=== PATIENT | male | born 1990 | race Caucasian/White ===

== ENCOUNTER 2018-04-24 06:00 | Emergency (ER) | END 2018-04-24 07:49 | disposition left against medical advice (07) ==

== ENCOUNTER 2019-01-21 08:57 | Emergency (ER) | payer OTHER ==
[~2019-01-21] VITALS: Ht 188 cm; Wt 136.4 kg
[~2019-01-21 08:57] MED LIST: ACET500C5 PO; CARV6.2579 PO; DOLU50TA PO; EMTR1TAB11 PO; IBUP-1542 PO; MELO7.5T38 PO; ONDA4TAB8 PO; TRAM50TA2 PO; TRUV PO
[2019-01-21 08:59] VITALS: BP 148/65; PULSE 91; RESP 18; Ht 188 cm; Wt 136.4 kg
--- NOTE | 2019-01-21 10:46 | ERD ---
ER Documentation Chief Complaint Chief Complaint Pt c/o piece of glass on his throat for 6weeks. HPI This is a 28-year-old male with a history of methamphetamine dependence presents to ED with complaints of foreign body in throat for the past 1-1/2 months. Patient states that he was using methamphetamine 1/2 months ago and he dropped his pipe causing it to crack. Patient states that he then proceeded to snort methamphetamine and believes that he snorted a piece of glass. Patient states that he has been seen by his primary care physician for this complaint and he h as also been seen by ENT but he has not had any imaging done. Patient admits to sore throat that is been off and on for the past month and half. Tolerating p.o. liquids and solids. Denies painful swallowing. Denies fever, chills, neck pain, headache, blurry vision changes in vision, and all other symptoms . last used meth 1-1/2 months ago. ROS All systems reviewed and are negative except as per history of present illness. Medications Home Meds Active Scripts Dolutegravir Sodium (Tivicay) 50 Mg Tablet, 50 MG PO DAILY, #15 TAB Prov:JACQUELYN LÓPEZ MD 09/07/16 Emtricitabine-Tenofovir* (Truvada*) 200-300 Mg Tablet, 1 TAB PO DAILY for 15 Days, #15 TAB Prov:JACQUELYN LÓPEZ MD 09/07/16 PMhx/Soc Hx Cardiac Disorders: Yes (HTN) Hx Miscellaneous Medical Probl: Yes (DM, SLEEP APNEA) FmHx Family History: No diabetes Physical Exam Vitals Vital Signs Date Temp Pulse Resp B/P (MAP) Pulse Ox O2 O2 Flow FiO2 Time Delivery Rate 01/21/19 98.4 91 18 148/65 97 08:59 (92) Physical Exam Physical Exam Vitals signs: Reviewed by me. General: Well developed, well nourished, in mild distress. Patient is awake and alert. Head: Normocephalic, atraumatic. Eyes: Normal conjunctiva, Pupils PERRLA, EOM intact grossly ENT: Pharynx is clear, Moist mucous membranes, external ears, nose and mouth normal, no blood seen in posterior oropharynx, no tonsillar adenopathy, exudate or erythema, no kissing tonsils, no uvula deviation, Neck: Supple, no masses, lymphadenopathy or JVD Respiratory: Clear to auscultation bilaterally with no wheezing, rhonchi, rales, no distress Cardiovascular: RRR, no murmurs, rubs, or gallops Neurologic: Alert and oriented, moving all extremities, normal speech, no focal weakness, no cerebellar signs. Normal mentation Skin: warm and dry, No rash Psych: Normal mood Procedures/MDM EKG, MONITORS, & DIAGNOSTIC IMAGING: [place] [address] Radiology Main Line: [phone] DIAGNOSTIC IMAGING REPORT Patient: LALIT GARCES : 11/08/1953 Age: 65 Sex: M MR #: [id number] DOS: 01/21/19 0825 Ordering MD: RIKI OSBORN PA-C Location: [facility] Room/Bed: PROCEDURE: Thoracic spine series CLINICAL INDICATION: Pain TECHNIQUE: AP and lateral views of thoracic spine were obtained COMPARISON: None FINDINGS: No evidence of acute fractures or subluxations. Mild degenerative enthesopathy involving the thoracic spine. The bones are osteopenic without focal bony blastic or lytic lesions. Posterior elements appear intact. No paraspinous masses. IMPRESSION: Degenerative changes thoracic spine as above without acute fractures or subluxations. RPTAT:AAJJ Physician Althea Date Time Electronically viewed and signed by Physician Althea on 01/21/2019 09:13 BM/ CC: RIKI OSBORN PA-C [phone] ER COURSE: The patient was stable throughout ED course. I kept the patient and/or family informed of laboratory and diagnostic imaging results throughout the emergency room course. The patient was promptly evaluated and a treatment plan was devised based on H&P and other data. This plan was discussed with the patient who agreed and had no further questions or concerns prior to discharge. MEDICAL DECISION MAKIN-year-old male with a history of methamphetamine dependence presents ED with complaints of foreign body in throat times 1/2 months. Patient is requesting imaging the emergency department today. CT neck soft tissues unremarkable. There is no evidence of glass foreign body in throat/ neck. This is likely a viral sore throat / globus sensation. At this time there is no esophageal emergency. No evidence of esophageal rupture, retropharyngeal abscess, peritonsillar abscess, liquids, epiglottitis, sepsis among other emergencies. Vitals are stable patient can be managed close outpatient follow-up. Advised patient follow-up this morning care in the next 48 hours. Return to ED with any worsening DISPOSITION PLAN: We discussed follow up with the patient's primary care doctor within 24 to 48 hours. Patient counseled regarding my diagnostic impression and care plan. Prior to discharge all questions answered. Pt agrees with treatment plan and understands strict return precautions. Precautionary instructions provided in cluding instructions to return to the ER if not improving or for any worsening or changing symptoms or concerns. SPECIALIST FOLLOW UP RECOMMENDED: None Patient has been advised to follow up with primary care in 1-2 days. Disclaimer: Inadvertent spelling and grammatical errors are likely due to EHR/dictation software use and do not reflect on the overall quality of patient care. Also, please note that the electronic time recorded on this note does not necessarily reflect the actual time of the patient encounter. Blood Pressure Assessment: Patient's blood pressure was elevated (>120/80) but appears stable without evidence of hypertension emergency or urgency. The patient was counseled about the risks of hypertension and urged to pursue outpatient monitoring and therapy within a week with their primary care physician. Departure Diagnosis: Primary Impression: Sore throat Additional Impression: Globus sensation Condition: Stable Patient Instructions: Self-Care for Sore Throats Referrals: COMMUNITY CLINICS Additional Instructions: Patient advised to return to the ED immediately for new or worsening symptoms. Patient advised to follow up with primary care provider in the next 24-48 hours. Patient verbalized understanding and agrees with treatment plan and course of action. If patient has no primary care they may follow up with one of the community clinics listed on the following page or one of the options listed below [facility] [address] [place] [address] or [facility] [address] [place] [address] or [facility] [address] [place] [address] RIKI OSBORN PA-C Jan 21, 2019 10:46
== END 2019-01-21 11:35 | disposition left against medical advice (07) ==
LOC: FTE 08:57 → MERGE 08:57 → FTE 11:35
DX: J02.9 Acute pharyngitis, unspecified (principal); I10 Essential (primary) hypertension; E11.9 Type 2 diabetes mellitus without complications; F45.8 Other somatoform disorders
CPT/HCPCS: 70490; Z7502

== ENCOUNTER 2019-02-15 08:43 | Emergency (ER) | payer OTHER ==
[~2019-02-15] VITALS: Ht 185.4 cm; Wt 134.4 kg
[~2019-02-15 08:43] MED LIST changes: +IBUP-1561 PO
[2019-02-15 08:50] VITALS: BP 142/75; PULSE 100; RESP 16; Ht 185.4 cm; Wt 134.4 kg
[2019-02-15] MEDS ORDERED: DOLU50TA PO (09:56)
[2019-02-15] MEDS ORDERED: TENO300T8 PO (09:56)
--- NOTE | 2019-02-15 17:57 | ERD ---
ER Documentation Chief Complaint Chief Complaint needs rx for possible std HPI This is a 28-year-old male patient who presents to the emergency room with concerns that he may have contracted HIV last night. States he went out drinking and "brought a homeless drug addict woman home." Reports having only vaginal intercoursex1 without condom use. Patient is requesting use of PEP to prevent HIV. Patient is declining testing for chlamydia, gonorrhea, or other communicable diseases. Is having no other symptoms, no penile discharge, no fevers, no abdominal pain. ROS All systems reviewed and are negative except as per history of present illness. Medications Home Meds Active Scripts Dolutegravir Sodium (Tivicay) 50 Mg Tablet, 50 MG PO ONCE for 1 Day, TAB Prov:JUAN OTERO NP 02/15/19 Tenofovir Disoproxil Fumarate (Tenofovir Disoproxil Fumarate) 300 Mg Tablet, 300 MG PO ONCE for 1 Day, TAB Prov:JUAN OTERO NP 02/15/19 Ibuprofen* (Motrin*) 400 Mg Tab, 400 MG PO Q6, #30 TAB Prov:RIKI OSBORN PA-C 01/21/19 Acetaminophen* (Tylophen*) 500 Mg Capsule, 1 CAP PO Q6H PRN for PAIN AND OR ELEVATED TEMP, #30 CAP Prov:MARIBELL LAWRENCE PA-C 04/24/18 Ondansetron Hcl* (Zofran*) 4 Mg Tablet, 4 MG PO Q6H for NAUSEA AND/OR VOMITING, #30 TAB Prov:MARIBELL LAWRENCE PA-C 04/24/18 Dolutegravir Sodium (Tivicay) 50 Mg Tablet, 50 MG PO DAILY, #7 TAB Prov:HUNTER KENNEDY NP 10/29/16 Emtricitabine-Tenofovir* (Truvada*) 200-300 Mg Tablet, 1 TAB PO DAILY for 7 Days, TAB Prov:HUNTER KENNEDY NP 10/29/16 Dolutegravir Sodium (Tivicay) 50 Mg Tablet, 50 MG PO DAILY, #15 TAB Prov:JACQUELYN LÓPEZ MD 09/07/16 Emtricitabine-Tenofovir* (Truvada*) 200-300 Mg Tablet, 1 TAB PO DAILY for 15 Days, #15 TAB Prov:JACQUELYN LÓPEZ MD 09/07/16 Dolutegravir Sodium (Tivicay) 50 Mg Tablet, 50 MG PO DAILY for 7 Days, TAB Prov:MARIBELL LAWRENCE PA-C 09/02/16 Emtricitabine-Tenofovir* (Truvada*) 200-300 Mg Tablet, 1 TAB PO DAILY for 7 Days, TAB Prov:MARIBELL LAWRENCE PA-C 09/02/16 Meloxicam* (Meloxicam*) 7.5 Mg Tablet, 7.5 MG PO DAILY, #10 TAB Prov:KRIS,KIRAN 05/21/16 Ibuprofen* (Motrin*) 600 Mg Tab, 600 MG PO Q6H PRN for PAIN AND OR ELEVATED TEMP, #20 TAB Prov:ANDREW FARRIS MD 04/04/16 Emtricitabine-Tenofovir* (Truvada*) 200-300 Mg Tab, 1 TAB PO DAILY, #30 TAB [facility] 03/30/16 Dolutegravir Sodium (Tivicay) 50 Mg Tablet, 50 MG PO DAILY, #30 TAB Prov:[facility] 03/30/16 Carvedilol* (Carvedilol*) 6.25 Mg Tablet, 6.25 MG PO BID, #60 TAB Prov:LISSY LAZO PA-C 02/01/16 Tramadol HCl (Tramadol HCl) 50 Mg Tablet, 50 MG PO Q6 PRN for PAIN, #20 TAB Prov:CHASE BARRAGAN MD 01/25/16 Allergies Allergies: Coded Allergies: No Known Allergy (Unverified , 04/24/18) PMhx/Soc Medical and Surgical Hx: pt denies Surgical Hx History of Surgery: No Anesthesia Reaction: No Hx Neurological Disorder: No Hx Respiratory Disorders: Yes (Sleep Apnea) Hx Cardiac Disorders: Yes (HTN) Hx Psychiatric Problems: Yes (Schizophrenia,Bipolar D/O,Depression) Hx Miscellaneous Medical Probl: Yes (DM, SLEEP APNEA) Hx Alcohol Use: No Hx Substance Use: No Hx Tobacco Use: No FmHx Family History: No diabetes, No coronary disease, No other Physical Exam Vitals Vital Signs Date Temp Pulse Resp B/P (MAP) Pulse Ox O2 O2 Flow FiO2 Time Delivery Rate 02/15/19 97.8 100 16 142/75 100 08:50 (97) Physical Exam Const: No acute distress Head: Atraumatic Eyes: Normal Conjunctiva ENT: Normal External Ears, Nose and Mouth. Neck: Full range of motion. No meningismus. Resp: Clear to auscultation bilaterally Cardio: Regular rate and rhythm, no murmurs Abd: Soft, non tender, non distended. Normal bowel sounds Skin: No petechiae or rashes Back: No midline or flank tenderness Ext: No cyanosis, or edema Neur: Awake and alert Psych: Normal Mood and Affect Procedures/MDM This 28-year-old male patient presents with concern for laura HIV. She is otherwise well-appearing. PEP prescriptions provided to patient as well as locations of HIV clinics. Strict instructions provided to patient to follow-up with HIV clinics for continued testing. Patient states he verbalized understanding that 1 pill is not the end of his treatment. Verbalized understanding of signs and symptoms of STD and when to seek medical treatment. Departure Diagnosis: Primary Impression: Exposure to blood or body fluid Condition: Stable Patient Instructions: For Teens: What You Should Know About HIV and AIDS, HIV Infection and AIDS Referrals: [facility] YOU HAVE RECEIVED A MEDICAL SCREENING EXAM AND THE RESULTS INDICATE THAT YOU DO NOT HAVE A CONDITION THAT REQUIRES URGENT TREATMENT IN THE EMERGENCY DEPARTMENT. FURTHER EVALUATION AND TREATMENT OF YOUR CONDITION CAN WAIT UNTIL YOU ARE SEEN IN YOUR DOCTORS OFFICE WITHIN THE NEXT 1-2 DAYS. IT IS YOUR RESPONSIBILITY TO MAKE AN APPOINTMENT FOR FOLOW-UP CARE. IF YOU HAVE A PRIMARY DOCTOR --you should call your primary doctor and schedule an appointment IF YOU DO NOT HAVE A PRIMARY DOCTOR YOU CAN CALL OUR PHYSICIAN REFERRAL HOTLINE AT IF YOU CAN NOT AFFORD TO SEE A PHYSICIAN YOU CAN CHOSE FROM THE FOLLOWING [facility] [address] [facility] [address] [facility] [facility] [address] [facility]. [facility] [address] [facility]. [facility] [address] [facility]. [facility]. [address] Additional Instructions: Thank you very much for allowing us to participate in your care. Your health and safety is our top priority at [facility]. Call your primary care doctor TOMORROW for an appointment during the next 2-4 days and bring all the information and medications prescribed. Have prescriptions filled and follow precisely the directions on the label. If the symptoms get worse and your provider is unavailable, return to the Emergency Department immediately. You must follow-up with local clinic for continued testing. If you are unable to fill the medication, there are HIV clinics that may be able to help provide you with assistance. You must be tested for HIV for confirmatory HIV infection. JUAN OTERO NP Feb 15, 2019 17:57 MICHELLE CARD MD Feb 16, 2019 21:55
== END 2019-02-15 10:18 | disposition home or self-care (01) ==
LOC: FTE 08:43
DX: Z77.21 Contact with and (suspected) exposure to potentially hazardous body fluids (principal)
CPT/HCPCS: 99281